=== PATIENT | female | born 1970 | race Caucasian/White ===

== ENCOUNTER 2017-09-09 09:32 | Outpatient (CLI) | payer OTHER ==
[2017-09-09] MEDS ORDERED: Gadobenate Dimeglumine 529 MG/1 ML (20ML VIAL) ONE (12:51)
[2017-09-09] MEDS ORDERED: EPINEPHrine 1 MG/ML AMP ONE (12:51)
[2017-09-09] MEDS ORDERED: Lidocaine 1% PF 5 ML VIAL ONE (12:51)
[2017-09-09] MEDS ORDERED: Iopamidol 300 61% 100 ML VIAL FS ONE (12:51)
--- NOTE | 2017-09-09 12:58 | RAD ---
RIGHT SHOULDER ARTHROGRAM: HISTORY: A 47-year-old female with right shoulder pain. FINDINGS: Following informed consent, the right shoulder was prepped and draped in the usual sterile fashion. Local anesthesia was obtained with 1% Xylocaine. A 22-gauge spinal needle was introduced into the an terior superior glenohumeral joint. A mixture of iodinated Gadolinium contrast media was injected. Multiple spot films confirm intraarticular location. FLUOROSCOPY TIME: 0.7 minutes with 2 portable fluoroscopic spot films and dose of 1.075 Gy*^cm2. IMPRESSION: Successful right shoulder arthrogram. The patient is to be moved to MRI for post-arthrogram MRI to [facility]. POS: [facility]
--- NOTE | 2017-09-09 13:56 | MRI ---
RIGHT SHOULDER MRI POST ARTHROGRAM CONTRAST: HISTORY: A 47-year-old female with right shoulder pain. TECHNIQUE: Exam performed following right shoulder arthrogram. FINDINGS: Very mild AC joint arthrosis changes are noted. Slight fat stranding in the subacromial bursa. The rotator cuff appears intact. Rotator cuff muscles are within normal limits in signal and volume. Th e visualized labrum is unremarkable. IMPRESSION: 1. No evidence for rotator cuff tear. 2. No overt labral tear. 3. Small subchondral cyst of the lesser tuberosity. 4. No acute osteochondral defect. POS: [facility]
== END 2017-09-09 09:33 | disposition home or self-care (01) ==
LOC: RAD 09:32
PROVIDERS: ATTEND Orthopaedic Surgery
DX: M25.511 Pain in right shoulder (principal)
CPT/HCPCS: 23350; A9579; J0171; J2001